=== PATIENT | female | born 1995 | race Caucasian/White ===

== ENCOUNTER 2016-10-06 11:10 | Emergency (ER) | payer OTHER ==
[2016-10-06 11:56] VITALS: BMI 27.3
[2016-10-06 12:00] VITALS: RESP 18
--- NOTE | 2016-10-06 12:15 | ED PDOC ---
HPI: Abdomen Time Seen by Provider: 10/06/16 11:24 Chief Complaint (Nursing): Abdominal Pain Chief Complaint (Provider): Abdominal Pain History Per: Patient History/Exam Limitations: no limitations Onset/Duration Of Symptoms: Days (x6 days) Outside of [place] travel?: No Current Symptoms Are (Timing): Still Present Severity: Moderate Location Of Pain/Discomfort: Other (right-sided flank) Associated Symptoms: Chest Pain, Other (shortness of breath). denies: Fever, Nausea, Vomiting, Diarrhea Exacerbating Factors: Movement, Deep Breaths Additional Complaint(s): Franky Ferguson is a 21 year old female, with a past medical history of asthma, who presents to the emergency department for the evaluation of right-sided flank pain, that the patient has been experiencing for 6 days. Pain is centralized in her abdomen and reportedly radiates to her right shoulder. Exacerbating factors include breathing and ambulation. Associated dry cough and nasal congestion are also currently present. Denies a fever, nausea, vomiting, diarrhea, or shortness of breath. PMD: none specified Against Medical Advice - AMA Patient Left Against Medical Advice: The patient declines admission to the hospital and wishes to leave the Emergency Department. This action is against my medical advice. This decision was made with informed refusal. The patient was told that admission to the hospital is necessary. Explanation of the reasons why were discussed. The risks of leaving were explained to the patient and include, but are not limited to, worsening of known or currently unknown conditions, permanent disability and from undiagnosed or untreated conditions. The patient has the capacity to make this informed decision and understands my explanation of the current medical problem and risks of leaving. The patient voluntarily accepts these risks and signed an AMA form documenting our conversation. The patient was given the opportunity to ask questions and reconsider. The patient was encouraged to return to the Emergency Department at any time for further care. Past Medical History Reviewed: Historical Data, Nursing Documentation, Vital Signs Vital Signs: Last Vital Signs Temp 98.8 F 10/06/16 14:06 Pulse 82 10/06/16 14:06 Resp 18 10/06/16 14:06 BP 128/76 10/06/16 14:06 Pulse Ox 99 10/06/16 14:06 - Medical History PMH: Asthma - Surgical History Other surgeries: Dilation and Curettage (x1 month ago) - Family History Family History: States: Unknown Family Hx - Immunization History Hx Tetanus Toxoid Vaccination: No Hx Influenza Vaccination: No Hx Pneumococcal Vaccination: No - Home Medications Home Medications: Ambulatory Orders Medication Instructions Recorded No Known Home Med [No Known Home 12/16/14 Med] - Allergies Allergies/Adverse Reactions: Allergies Allergy/AdvReac Type Severity Reaction Status Date / Time amoxicillin Allergy RASH Verified 10/06/16 11:56 Penicillins Allergy RASH Verified 10/06/16 11:56 Review of Systems ROS Statement: Except As Marked, All Systems Reviewed And Found Negative Constitutional: Negative for: Fever ENT: Positive for: Nose Congestion Cardiovascular: Negative for: Chest Pain Respiratory: Positive for: Cough. Negative for: Shortness of Breath, Sputum Gastrointestinal: Positive for: Abdominal Pain (right-sided flank). Negative for: Nausea, Vomiting, Diarrhea Musculoskeletal: Positive for: Shoulder Pain (right shoulder) Physical Exam - Reviewed Nursing Documentation Reviewed: Yes Vital Signs Reviewed: Yes - Physical Exam Appears: Positive for: Non-toxic, No Acute Distress. Negative for: Uncomfortable Head Exam: Positive for: ATRAUMATIC, NORMOCEPHALIC Skin: Positive for: Normal Color, Warm, Dry. Negative for: Rash Neck: Positive for: Normal, Painless ROM Cardiovascular/Chest: Positive for: Regular Rate, Rhythm. Negative for: Edema, Murmur Respiratory: Positive for: Normal Breath Sounds. Negative for: Respiratory Distress Gastrointestinal/Abdominal: Positive for: Normal Exam, Soft, Other (right-sided flank pain). Negative for: Tenderness Extremity: Positive for: Normal ROM. Negative for: Tenderness, Swelling Neurologic/Psych: Positive for: Alert, Oriented - Laboratory Results Result Diagrams: 10/06/16 12:05 10/06/16 12:50 - ECG ECG: Positive for: Interpreted By Me, Viewed By Me, Discussed With Supervisor Home Energy Consultant ECG Rhythm: Positive for: Normal QRS, Normal ST Segment, 1st Degree Heart Block Rate: 78 O2 Sat by Pulse Oximetry: 100 (RA) Pulse Ox Interpretation: Normal - Radiology X-Ray: Viewed By Me, Read By Radiologist X-Ray Interpretation: No Acute Disease Medical Decision Making Medical Decision Makin:24 Initial Impression: Flank pain Differential Diagnoses include, but are not limited to renal stones, musculoskeletal pain, pulmonary embolism, pleural effusion, and pneumonia. Initial Plan: * EKG * CBC * BMP * Troponin I * D Dimer * Urine Dip * Urine * Toradol 30 mg IVP * Reevaluation 12:46 EKG read, rate at 78. Normal QRS, Normal ST Segment, 1st Degree Heart Block. 13:32 D Dimer came back elevated at .58. CT angio ordered Scribe Attestation: Documented by Gamaliel Vaca, acting as a scribe for Buddy Wagoner MD. Provider Scribe Attestation: All medical record entries made by the Scribe were at my direction and personally dictated by me. I have reviewed the chart and agree that the record accurately reflects my personal performance of the history, physical exam, medical decision making, and the department course for this patient. I have also personally directed, reviewed, and agree with the discharge instructions and disposition. Disposition - Clinical Impression Clinical Impression: Chest pain, Flank pain - Patient ED Disposition Is Patient to be Admitted: No Counseled Patient/Family Regarding: Studies Performed, Diagnosis, Need For Followup - Disposition Referrals: [facility] [Outside] Disposition: Against Medical Advice Disposition Time: 15:00 Condition: GOOD Additional Instructions: Return for worsening. Follow up with your PCP in 2-3 days. Instructions: Chest Pain (ED), Flank Pain (ED)
[2016-10-06 13:07] LABS: BASO % 0.3 % (0.0-2.0); EOS # 0.1 K/uL (0.0-0.7); EOS % 0.9 % (0.0-4.0); HEMATOCRIT 36.4 % (34.0-47.0); LYMPH # 2.1 K/uL (1.0-4.3); LYMPH % 14.4 % (20.0-40.0); MEAN CELL VOLUME 85.8 fl (81.0-99.0); MEAN CORPUSCULAR HGB CONC 33.8 g/dL (33.0-37.0); MEAN PLATELET VOLUME 8.1 fl (7.2-11.7); MONO # 0.9 K/uL (0.0-0.8); MONO % 5.9 % (0.0-10.0); NEUT # 11.7 K/uL (1.8-7.0); NEUT % 78.5 % (50.0-75.0); NRBC % 0.2 % (0.0-0.0); RED CELL DISTRIBUTION WIDTH 13.5 % (11.5-14.5); WHITE BLOOD COUNT 14.9 K/uL (4.8-10.8)
[2016-10-06 13:14] LABS: BLOOD UREA NITROGEN 20 mg/dl (7-17); CARBON DIOXIDE 23 mmol/L (22-30); CHLORIDE 107 mmol/L (98-107); GFR AFRICAN-AMERICAN > 60; GLUCOSE,RANDOM 86 mg/dL (65-105); SODIUM 142 mmol/l (132-148)
[2016-10-06 13:16] LABS: POTASSIUM 5.8 MMOL/L (3.6-5.0)
[2016-10-06 14:06] VITALS: BP 128/76; TEMP 98.8
--- NOTE | 2016-10-06 15:22 | RAD ---
HISTORY: Right-sided chest pain. COMPARISON: No prior. FINDINGS: LUNGS: No active pulmonary disease. PLEURA: No significant pleural effusion identified, no pneumothorax apparent. CARDIOVASCULAR: Normal. OSSEOUS STRUCTURES: No significant abnormalities. VISUALIZED UPPER ABDOMEN: Normal. OTHER FINDINGS: None. IMPRESSION: No active disease.
[2016-10-06 18:13] VITALS: PULSE 78; O2SAT 100
--- NOTE | 2016-10-07 20:58 | CARD ---
APPROVED REPORT EKG Measurement Heart [id number] <Conclusion> Sinus rhythm with 1st degree AV block Otherwise normal ECG
== END 2016-10-06 15:15 | disposition left against medical advice (07) ==
LOC: H.ER 11:10
DX: R10.9 Unspecified abdominal pain (principal); R07.9 Chest pain, unspecified; I44.0 Atrioventricular block, first degree; Z88.0 Allergy status to penicillin; J45.909 Unspecified asthma, uncomplicated

== ENCOUNTER 2016-10-12 17:15 | Emergency (ER) | payer OTHER ==
[2016-10-12 17:15] VITALS: BMI 31.5
--- NOTE | 2016-10-12 18:43 | ED PDOC ---
HPI: Abdomen Time Seen by Provider: 10/12/16 18:18 Chief Complaint (Nursing): Abdominal Pain Chief Complaint (Provider): Abdominal Pain History Per: Patient History/Exam Limitations: no limitations Onset/Duration Of Symptoms: Hrs (just prior to arrival), Sudden Onset Outside of [place] travel?: No Current Symptoms Are (Timing): Still Present Severity: Moderate Location Of Pain/Discomfort: Other (midline) Quality Of Discomfort: Sharp Associated Symptoms: Other (some localized swelling at area of pain) Additional Complaint(s): Brandt Ferguson is a 21 year old female, s/p recent cholecystectomy (discharged home from this facility approximately 6 hours prior to arrival, who presents to the ED on 10/12/16 for the evaluation of moderate, midline abdominal pain that she began to experience after she had felt a "pop" within the affected area as she was yelling at someone just prior to arrival. Pain is further described as both sudden onset and sharp, not felt prior to or in the days following the surgery. Some associated swelling, localized to the area of pain, is also reported though she denies any genitourinary complaints. PMD: [place] Past Medical History Reviewed: Historical Data, Nursing Documentation, Vital Signs Vital Signs: Last Vital Signs Temp 98.3 F 10/12/16 22:02 Pulse 78 10/12/16 22:02 Resp 17 10/12/16 22:02 BP 135/79 10/12/16 22:02 Pulse Ox 98 10/12/16 22:02 - Medical History PMH: Asthma, Gall Bladder Disease - Surgical History Surgical History: Cholecystectomy - Family History Family History: States: No Known Family Hx - Social History Current smoker - smoking cessation education provided: No Alcohol: None Drugs: Denies - Immunization History Hx Tetanus Toxoid Vaccination: No Hx Influenza Vaccination: No Hx Pneumococcal Vaccination: No - Home Medications Home Medications: Ambulatory Orders Medication Instructions Recorded Ciprofloxacin HCl [Cipro] 500 mg PO BID #10 tablet 10/12/16 Ibuprofen [Motrin Tab] 400 mg PO Q6 PRN #0 tab 10/12/16 Metronidazole [Flagyl] 500 mg PO TID #15 tablet 10/12/16 oxyCODONE/Acetaminophen [Percocet 1 tab PO QID PRN 3 Days 10/12/16 5/325 mg Tab] - Allergies Allergies/Adverse Reactions: Allergies Allergy/AdvReac Type Severity Reaction Status Date / Time amoxicillin Allergy RASH Verified 10/12/16 17:28 Penicillins Allergy RASH Verified 10/12/16 17:28 Review of Systems ROS Statement: Except As Marked, All Systems Reviewed And Found Negative Gastrointestinal: Positive for: Abdominal Pain (sudden onset, sharp/midline; some associated localized swelling also reported) Genitourinary Female: Negative for: Dysuria, Frequency, Hematuria, Vaginal Discharge, Vaginal Bleeding Physical Exam - Reviewed Nursing Documentation Reviewed: Yes Vital Signs Reviewed: Yes - Physical Exam Appears: Positive for: Uncomfortable, In Acute Distress (moderate painful distress) Head Exam: Positive for: ATRAUMATIC, NORMOCEPHALIC Skin: Positive for: Normal Color, Warm, Dry Eye Exam: Positive for: Normal appearance, PERRL ENT: Positive for: Normal ENT Inspection Cardiovascular/Chest: Positive for: Regular Rate, Rhythm. Negative for: Murmur Respiratory: Positive for: Normal Breath Sounds. Negative for: Respiratory Distress Gastrointestinal/Abdominal: Positive for: Soft, Tenderness (just above umbilicus w/subtle swelling at site), Other (incisions are clean/dry/intact). Negative for: Mass, Guarding, Rebound Back: Positive for: Normal Inspection Extremity: Positive for: Normal ROM (moving all extremities) Neurologic/Psych: Positive for: Alert, Oriented - Laboratory Results Result Diagrams: 10/12/16 18:46 10/12/16 18:46 - ECG O2 Sat by Pulse Oximetry: 100 (RA) Pulse Ox Interpretation: Normal Medical Decision Making Medical Decision Makin:18 Initial Impression: post-cholecystectomy abdominal pain Differential diagnoses include but are not limited to hernia, adhesion, internal bleeding, abdominal abscess. Initial Plan: * CT A/P w/IV contrast only * Labs * Lipase * PTT * PT * Udip * Morphine 4mg IVP * Reevaluation Accession No. : [id number] Patient Name / ID : TABITHA CARLTNO / [id number] Exam Date : 10/12/2016 21:17:28 ( Approved ) Study Comment : Sex / Age : F / 21Y Creator : Lucia Kent MD Dictator : Cleat Maker : Manager Supply Chain Planning : Lucia Ketn MD Approver2 : Report Date : 10/12/2016 22:05:00 My Comment : [facility] Division of Radiology [address] [address] Tel. no. Patient Name: BRANDT FERGUSON Pt. Address: [address] [place] [address]. Rec #: [id number] [place] [address]: Roney SWANSON, Sigrid Quezada Pt CELL Order Location: [place] : 1995 Female Age: 21 Order #: [id number] Reason for exam: ABD PAIN CT Scan ABD PELVIS IV CONTRAST ONLY Exam Date: 10/12/16 This imaging exam was performed at [facility] EXAM: CT Abdomen and Pelvis With Intravenous Contrast CLINICAL HISTORY: 21 years old, female; Pain; Abdominal pain; Localized; Other: Mid abd; Prior surgery; Surgery date: Post-operative (0-2 days); Surgery type: Patient states : Gb removed; Additional info: Abd pain. Sent phy. Doc. With request TECHNIQUE: Axial computed tomography images of the abdomen and pelvis with intravenous contrast. This CT exam was performed using one or more of the following dose reduction techniques: automated exposure control, adjustment of the mA and/or kV according to patient size, and/or use of iterative reconstruction technique. Coronal and sagittal reformatted images were created and reviewed. CONTRAST: 90 mL of [id number] administered intravenously. COMPARISON: US - ABDOMEN LIMITED (GB INCLUDED) 10/08/2016 8:51:12 AM FINDINGS: Atelectasis at the lung bases. Status post cholecystectomy. Mild intrahepatic biliary ductal dilatation. Small amount of fluid in the gallbladder fossa. Small amount of free fluid in the pelvis. The spleen, pancreas and adrenal glands demonstrate no acute abnormalities. The kidneys are symmetric with no evidence of hydronephrosis. The aorta is unremarkable. Evaluation of bowel limited without enteric contrast. The small and large bowel as visualized demonstrate no evidence of obstruction or clear focus of inflammation. Retained fecal material in the colon. Small bowel feces sign in the distal small bowel consistent with delayed transit. Few small foci of air and stranding in the anterior subcutaneous tissue and region of umbilicus. IMPRESSION: Atelectasis at the lung bases. Status post cholecystectomy. Mild intrahepatic biliary ductal dilatation. Small amount of fluid in the gallbladder fossa. Small amount of free fluid in the pelvis. Retained fecal material in the colon. Small bowel feces sign in the distal small bowel consistent with delayed transit. Few small foci of air and stranding in the anterior subcutaneous tissue and region of umbilicus. Dictated By: Lucia Kent MD Dictated Date/Time: 10/12/162204 Signed By: Lucia Kent Date Signed: 2204 Transcribed By: DAVID Transcribe Date/Time : 10/12/162204 HAKAN/HERMAN 10p Pt ambulating in ER without difficulty, comfortably talking to friends in the ER. JUR[facility] who recommends Percocet and dc home. Scribe Attestation: Documented by Claudia Ridley, acting as a scribe for Sigrid Sim MD. Provider Scribe Attestation: All medical record entries made by the Scribe were at my direction and personally dictated by me. I have reviewed the chart and agree that the record accurately reflects my personal performance of the history, physical exam, medical decision making, and the department course for this patient. I have also personally directed, reviewed, and agree with the discharge instructions and disposition. Disposition - Clinical Impression Clinical Impression: Abdominal pain - Disposition Referrals: Ap Lerner MD [Staff Provider] - Disposition: Routine/Home Disposition Time: 10:00 Condition: IMPROVED Additional Instructions: FOLLOW UP WITH SURGERY SCHEDULED TAKE ALL YOUR MEDICATIONS PRESCRIBED AVOID ANY USE OF ABDOMINAL MUSCLES. IF YOU MUST COUGH, HOLD A THICK PILLOW TIGHT TO YOUR BELLY Prescriptions: oxyCODONE/Acetaminophen [Percocet 5/325 mg Tab] 1 tab PO QID PRN 3 Days PRN Reason: Pain Instructions: Pain Management After Surgery (GEN)
[2016-10-12 18:54] LABS: BASO # 0.1 K/uL (0.0-0.2); BASO % 0.4 % (0.0-2.0); EOS % 0.2 % (0.0-4.0); HEMATOCRIT 37.9 % (34.0-47.0); LYMPH % 18.6 % (20.0-40.0); MEAN CELL VOLUME 85.2 fl (81.0-99.0); MEAN CORPUSCULAR HEMOGLOBIN 28.4 pg (27.0-31.0); MEAN CORPUSCULAR HGB CONC 33.3 g/dL (33.0-37.0); MEAN PLATELET VOLUME 7.4 fl (7.2-11.7); MONO # 1.1 K/uL (0.0-0.8); MONO % 7.1 % (0.0-10.0); NEUT # 11.9 K/uL (1.8-7.0); NEUT % 73.7 % (50.0-75.0); RED CELL DISTRIBUTION WIDTH 12.8 % (11.5-14.5); WHITE BLOOD COUNT 16.2 K/uL (4.8-10.8)
[2016-10-12 19:18] LABS: ALKALINE PHOSPHATASE 69 U/L (38-126); ALT/SGPT 39 U/L (9-52); AST/SGOT 42 U/L (14-36); BILIRUBIN,TOTAL 0.3 mg/dl (0.2-1.3); BLOOD UREA NITROGEN 13 mg/dl (7-17); CALCIUM 9.1 mg/dL (8.4-10.2); CARBON DIOXIDE 27 mmol/L (22-30); CHLORIDE 104 mmol/L (98-107); GFR AFRICAN-AMERICAN > 60; GLUCOSE,RANDOM 95 mg/dL (65-105); LIPASE 159 U/L (23-300); POTASSIUM 3.8 MMOL/L (3.6-5.0); SODIUM 143 mmol/l (132-148); TOTAL PROTEIN 7.5 G/DL (6.3-8.2)
[2016-10-12 19:26] LABS: PARTIAL THROMBOPLASTIN TIME 28.2 SECONDS (23.3-32.5)
[2016-10-12] MEDS ORDERED: Iohexol 300 100 ML IJ ONE (21:02)
[2016-10-12] MEDS ORDERED: Sodium Chloride 0.9% 50 ML IV ONE (21:02)
[2016-10-12 22:03] VITALS: BP 135/79; PULSE 78; RESP 17; TEMP 98.3
--- NOTE | 2016-10-12 22:06 | CT ---
EXAM: CT Abdomen and Pelvis With Intravenous Contrast CLINICAL HISTORY: 21 years old, female; Pain; Abdominal pain; Localized; Other: Mid abd; Prior surgery; Surgery date: Post-operative (0-2 days); Surgery type: Patient states: Gb removed; Additional info: Abd pain. Sent phy. Doc. With request TECHNIQUE: Axial computed tomography images of the abdomen and pelvis with intravenous contrast. This CT exam was performed using one or more of the following dose reduction techniques: automated exposure control, adjustment of the mA and/or kV according to patient size, and/or use of iterative reconstruction technique. Coronal and sagittal reformatted images were created and reviewed. CONTRAST: 90 mL of [id number] administered intravenously. COMPARISON: US - ABDOMEN LIMITED (GB INCLUDED) 10/08/2016 8:51:12 AM FINDINGS: Atelectasis at the lung bases. Status post cholecystectomy. Mild intrahepatic biliary ductal dilatation. Small amount of fluid in the gallbladder fossa. Small amount of free fluid in the pelvis. The spleen, pancreas and adrenal glands demonstrate no acute abnormalities. The kidneys are symmetric with no evidence of hydronephrosis. The aorta is unremarkable. Evaluation of bowel limited without enteric contrast. The small and large bowel as visualized demonstrate no evidence of obstruction or clear focus of inflammation. Retained fecal material in the colon. Small bowel feces sign in the distal small bowel consistent with delayed transit. Few small foci of air and stranding in the anterior subcutaneous tissue and region of umbilicus. IMPRESSION: Atelectasis at the lung bases. Status post cholecystectomy. Mild intrahepatic biliary ductal dilatation. Small amount of fluid in the gallbladder fossa. Small amount of free fluid in the pelvis. Retained fecal material in the colon. Small bowel feces sign in the distal small bowel consistent with delayed transit. Few small foci of air and stranding in the anterior subcutaneous tissue and region of umbilicus.
[2016-10-12 23:04] VITALS: O2SAT 100
== END 2016-10-12 23:11 | disposition home or self-care (01) ==
LOC: H.ER 17:15
DX: R10.9 Unspecified abdominal pain (principal)

== ENCOUNTER 2017-06-05 16:53 | Emergency (ER) | payer OTHER ==
[2017-06-05 16:54] VITALS: BMI 31.5
[2017-06-05 17:12] VITALS: RESP 16
[2017-06-05 18:32] LABS: CALCIUM 9.1 mg/dL (8.4-10.2); CARBON DIOXIDE 26 mmol/L (22-30); CHLORIDE 108 mmol/L (98-107); GFR AFRICAN-AMERICAN > 60; LIPASE 74 U/L (23-300); SODIUM 142 mmol/l (132-148)
--- NOTE | 2017-06-05 18:36 | ED PDOC ---
HPI: Abdomen Time Seen by Provider: 06/05/17 17:51 Chief Complaint (Nursing): Abdominal Pain Chief Complaint (Provider): Abdominal pain History Per: Patient Outside of [place] travel?: No Location Of Pain/Discomfort: RUQ Quality Of Discomfort: "Pain" Additional Complaint(s): 21yo female, presents to ED with complaints of "boils" to her left face and also bumps infront of her left ear, present for the last 4 days. She reports associated swelling and pain to the area. She also has cough and congestion, throat pain, denies any fever. Patient has a secondary complaint of chronic right upper quadrant abdominal pain, present since October of this year. Patient states she had a laproscopic cholecystectomy in this facility in September and since October, she has had pain in her right upper quadrant. Patient states she has not follows up with either her PCP or her surgeon for evaluation of the pain. Patient denies any fever, vomiting or diarrhea. No other complaints. Past Medical History Reviewed: Historical Data, Nursing Documentation, Vital Signs Vital Signs: Last Vital Signs Temp 98.3 F 06/05/17 22:18 Pulse 72 06/05/17 22:18 Resp 16 06/05/17 22:18 BP 127/86 06/05/17 22:18 Pulse Ox 98 06/05/17 22:18 - Medical History PMH: Asthma, Gall Bladder Disease - Surgical History Surgical History: Cholecystectomy - Family History Family History: States: No Known Family Hx, Unknown Family Hx - Social History Current smoker - smoking cessation education provided: No Ex-Smoker (has not smoked in the last 12 months): No Alcohol: None Drugs: Denies - Immunization History Hx Tetanus Toxoid Vaccination: No Hx Influenza Vaccination: No Hx Pneumococcal Vaccination: No - Home Medications Home Medications: Ambulatory Orders Medication Instructions Recorded Ciprofloxacin HCl [Cipro] 500 mg PO BID #10 tablet 10/12/16 Ibuprofen [Motrin Tab] 400 mg PO Q6 PRN #0 tab 10/12/16 Metronidazole [Flagyl] 500 mg PO TID #15 tablet 10/12/16 oxyCODONE/Acetaminophen [Percocet 1 tab PO QID PRN 3 Days tab 10/12/16 5/325 mg Tab] Doxycycline Hyclate 100 mg PO BID #14 cap 06/05/17 - Allergies Allergies/Adverse Reactions: Allergies Allergy/AdvReac Type Severity Reaction Status Date / Time amoxicillin Allergy RASH Verified 06/05/17 17:07 Penicillins Allergy RASH Verified 06/05/17 17:07 Review of Systems ROS Statement: Except As Marked, All Systems Reviewed And Found Negative Constitutional: Negative for: Fever, Chills ENT: Positive for: Nose Congestion, Other (bumps noted infront of left ear) Respiratory: Positive for: Cough Skin: Positive for: Other (boils noted to left side of face) Physical Exam - Reviewed Nursing Documentation Reviewed: Yes Vital Signs Reviewed: Yes - Physical Exam Appears: Positive for: Non-toxic, No Acute Distress Head Exam: Positive for: ATRAUMATIC, NORMAL INSPECTION, NORMOCEPHALIC Skin: Positive for: Warm Eye Exam: Positive for: EOMI, PERRL ENT: Positive for: Normal ENT Inspection Neck: Positive for: Supple Cardiovascular/Chest: Positive for: Regular Rate, Rhythm Respiratory: Positive for: Normal Breath Sounds. Negative for: Respiratory Distress Lymphatic: Positive for: Adenopathy (lymphadenopathy noted to left anteroauricular area; left submandibular adenopathy also noted.) Neurologic/Psych: Positive for: Alert, Oriented Comments: Skin: furuncles on left temporal area, no fluctuance, discharge or surrounding redness noted. - Laboratory Results Result Diagrams: 06/05/17 18:13 06/05/17 18:13 - ECG O2 Sat by Pulse Oximetry: 100 (RA) Pulse Ox Interpretation: Normal Medical Decision Making Medical Decision Making: Impression: Lymphadenopahty with facial furuncle. Abdominal pain s/p surgical procedure. Plan: -- Labs -- KUB Abdomen Reassess Time: 1820 XR Abdomen FINDINGS: BOWEL: Nonobstructive bowel gas pattern. Mild constipation. Right upper quadrant surgical clips. BONES: No acute osseous abnormality is detected. OTHER FINDINGS: Pelvic calcifications, likely phleboliths. IMPRESSION: Right upper quadrant surgical clips. Mild constipation. Time: 1921 Patient with continued complaints of throat pain. Also due to cervical lymphadenopathy, will order CT Neck. Patient to be signed out to Dr. Carroll pending CT Neck. Scribe Attestation: Documented by Alainajeffery Tuttle acting as a scribe for Buddy Wagoner MD Provider Attestation: All medical record entries made by the Scribe were at my direction and personally dictated by me. I have reviewed the chart and agree that the record accurately reflects my personal performance of the history, physical exam, medical decision making, and the department course for this patient. I have also personally directed, reviewed, and agree with the discharge instructions and disposition. Disposition - Clinical Impression Clinical Impression: Abdominal pain in female, Leukocytosis - Patient ED Disposition Is Patient to be Admitted: Transfer of Care - Disposition Referrals: [facility] [Outside] Eusebio Gómez MD [Staff Provider] - Disposition: Transfer of Care Disposition Time: 19:07 Condition: GOOD Additional Instructions: Follow up with your PCP in 2-3 days. Prescriptions: Doxycycline Hyclate 100 mg PO BID #14 cap Instructions: Folliculitis (ED), Abdominal Pain (ED) Patient Signed Over To: Chuy Carroll Handoff Comments: pending CT Neck
[2017-06-05 18:37] LABS: ALB/GLOB RATIO 1.1 (1.0-2.1); ALKALINE PHOSPHATASE 69 U/L (38-126); ALT/SGPT 34 U/L (9-52); AST/SGOT 47 U/L (14-36); BASO # 0.1 K/uL (0.0-0.2); BILIRUBIN,TOTAL 1.4 mg/dl (0.2-1.3); BLOOD UREA NITROGEN 15 mg/dl (7-17); EOS # 0.2 K/uL (0.0-0.7); EOS % 0.9 % (0.0-4.0); GLUCOSE,RANDOM 82 mg/dL (65-105); POTASSIUM 5.9 MMOL/L (3.6-5.0); RED CELL DISTRIBUTION WIDTH 12.8 % (11.5-14.5); TOTAL PROTEIN 8.9 G/DL (6.3-8.2)
--- NOTE | 2017-06-05 18:40 | RAD ---
HISTORY: chronic abd pain COMPARISON: CT of the abdomen and pelvis with contrast performed 10/12/16 FINDINGS: BOWEL: Nonobstructive bowel gas pattern. Mild constipation. Right upper quadrant surgical clips. BONES: No acute osseous abnormality is detected. OTHER FINDINGS: Pelvic calcifications, likely phleboliths. IMPRESSION: Right upper quadrant surgical clips. Mild constipation.
[2017-06-05 18:59] LABS: BASO % 0.5 % (0.0-2.0); HEMATOCRIT 41.1 % (34.0-47.0); LYMPH # 3.8 K/uL (1.0-4.3); LYMPH % 21.3 % (20.0-40.0); MEAN CELL VOLUME 86.7 fl (81.0-99.0); MEAN CORPUSCULAR HEMOGLOBIN 28.1 pg (27.0-31.0); MEAN CORPUSCULAR HGB CONC 32.4 g/dL (33.0-37.0); MEAN PLATELET VOLUME 8.9 fl (7.2-11.7); MONO # 0.8 K/uL (0.0-0.8); MONO % 4.3 % (0.0-10.0); NRBC % 0.1 % (0.0-0.0); WHITE BLOOD COUNT 17.8 K/uL (4.8-10.8)
--- NOTE | 2017-06-05 19:15 | ED PDOC ---
- Laboratory Results Result Diagrams: 06/05/17 18:13 06/05/17 18:13 - ECG O2 Sat by Pulse Oximetry: 100 (RA) Pulse Ox Interpretation: Normal Medical Decision Making Medical Decision Making: Receiving sign out: Patient signed out to me by Dr. Wagoner at 1900 pending CBC. Scribe Attestation: Documented by Alaina Tuttle acting as a scribe for Chuy Carroll MD. Provider Attestation: All medical record entries made by the Scribe were at my direction and personally dictated by me. I have reviewed the chart and agree that the record accurately reflects my personal performance of the history, physical exam, medical decision making, and the department course for this patient. I have also personally directed, reviewed, and agree with the discharge instructions and disposition. Disposition - Disposition Condition: STABLE Forms: [employer] (Malay)
--- NOTE | 2017-06-05 19:27 | ED PDOC ---
- Laboratory Results Result Diagrams: 06/05/17 18:13 06/05/17 18:13 - ECG O2 Sat by Pulse Oximetry: 100 Medical Decision Making Medical Decision Making: Receiving sign out: Patient signed out to me by Dr. Wagoner at [address] Abdomen Pt. reevaluted at bedside, states her throat was hurting minimally but was more concerned about her stomach. Throat clear of injection and exudate. Abdomen slightly tender in RUQ. CT showed no acute pathology. Pt. informed of blood results, states she has a hx of leukocytosis and it's been as high as 19. Explained that she needs to followup w/ PMD, and patient states "I don't go to her anymore because she's retarded." Explained the importance of primary care f /u w/ patient who verbalized understanding. Gave patient to referral to Clinic and also Hem/Onc for eval for chronic leukocytosis. Pt. stable for discharge. Return precautions discussed. Scribe Attestation: Documented by Alaina Tuttle acting as a scribe for Chuy Carroll MD. Provider Attestation: All medical record entries made by the Scribe were at my direction and personally dictated by me. I have reviewed the chart and agree that the record accurately reflects my personal performance of the history, physical exam, medical decision making, and the department course for this patient. I have also personally directed, reviewed, and agree with the discharge instructions and disposition. Disposition - Clinical Impression Clinical Impression: Abdominal pain in female, Leukocytosis - POA Present On Arrival: None - Disposition Referrals: [facility] [Outside] Eusebio Gómez MD [Staff Provider] - Disposition: Routine/Home Disposition Time: 21:56 Condition: GOOD Additional Instructions: Follow up with your PCP in 2-3 days. Prescriptions: Doxycycline Hyclate 100 mg PO BID #14 cap Instructions: Folliculitis (ED), Abdominal Pain (ED) Progress Note - Review of Symptoms Events since last encounter: Time: 2146 Patient negative for flu A/B. Stable for discharge home.
[2017-06-05] MEDS ORDERED: Iohexol 300 100 ML IJ ONE (19:32)
--- NOTE | 2017-06-05 21:11 | CT ---
EXAM: CT Abdomen and Pelvis With Intravenous Contrast CLINICAL HISTORY: 21 years old, female; Pain; Abdominal pain; Localized; Right; Prior surgery; Surgery date: 6+ months; Surgery type: Lap matthieu about 6 months ago; Additional info: R sided abd pain, S/P matthieu 4 mo ago TECHNIQUE: Axial computed tomography images of the abdomen and pelvis with intravenous contrast. All CT scans at this facility use one or more dose reduction techniques, viz.: automated exposure control; ma/kV adjustment per patient size (including targeted exams where dose is matched to indication; i.e. head); or iterative reconstruction technique. Coronal and sagittal reformatted images were created and reviewed. CONTRAST: 90 mL of [id number] administered intravenously. COMPARISON: CT - ABD PELVIS IV CONTRAST ONLY 2016-10-12 21:17 FINDINGS: Lower thorax: No acute findings. ABDOMEN: Liver: Unremarkable. No mass. Gallbladder and bile ducts: Cholecystectomy. No ductal dilation. Pancreas: No ductal dilation. No mass. Spleen: No splenomegaly. Adrenals: No mass. Kidneys and ureters: No mass. No hydronephrosis. Stomach and bowel: No definite mural thickening. No obstruction. Appendix: Normal caliber. No definite inflammation. PELVIS: Bladder: Unremarkable. Reproductive: Unremarkable as visualized. ABDOMEN and PELVIS: Intraperitoneal space: Trace free fluid within pelvis. No free air. Bones/joints: No acute fracture. Soft tissues: Unremarkable. Vasculature: Unremarkable. No aneurysm. Lymph nodes: No pathologically enlarged lymph nodes. IMPRESSION: 1. No definite acute intraabdominal abnormality. 2. Incidental/non-acute findings are described above.
[2017-06-05 22:19] VITALS: BP 127/86; PULSE 72; TEMP 98.3
[2017-06-06 13:14] VITALS: O2SAT 100
== END 2017-06-05 22:19 | disposition home or self-care (01) ==
LOC: H.ER 16:53
DX: R10.11 Right upper quadrant pain (principal); D72.829 Elevated white blood cell count, unspecified; R59.9 Enlarged lymph nodes, unspecified; K59.00 Constipation, unspecified; Z88.0 Allergy status to penicillin
CPT/HCPCS: 74000; 74177; 80053; 81025; 83605; 83690; 85025; 87804; 99284; Q9967

== ENCOUNTER 2017-09-15 06:24 | Emergency (ER) | payer OTHER ==
[2017-09-15 06:24] VITALS: BMI 31.5
[2017-09-15 06:36] VITALS: O2SAT 98
--- NOTE | 2017-09-15 08:09 | ED PDOC ---
- ECG O2 Sat by Pulse Oximetry: 98 Pulse Ox Interpretation: Normal Disposition - Disposition
--- NOTE | 2017-09-15 08:25 | ED PDOC ---
HPI: General Adult Time Seen by Provider: 09/15/17 07:14 Chief Complaint (Nursing): Anxiety Chief Complaint (Provider): Cough History Per: Patient History/Exam Limitations: no limitations Onset/Duration Of Symptoms: Other (x 1 week) Current Symptoms Are (Timing): Still Present Additional Complaint(s): Ms. Wilkins is a 21 year old female who presents to the ED complaining of coughing, anxiety, congestion, and runny nose for 1 week. Patient reports throat is itchy and "pain where the lungs are." Denies nausea, vomiting, diarrhea, leg pain, abdominal pain. Patient reports she is allergic to penicillin and amoxicillin. Patient denies taking any medications at home. No chest pain. No weakness or headaches. PMD: Kristian Watkins Past Medical History Reviewed: Historical Data, Nursing Documentation, Vital Signs Vital Signs: Last Vital Signs Temp 99.3 F 09/15/17 06:33 Pulse 86 09/15/17 06:33 Resp 18 09/15/17 06:33 BP 130/87 09/15/17 06:33 Pulse Ox 98 09/15/17 10:27 - Medical History PMH: Denies: Diabetes, Hepatitis, HIV, HTN, Seizures, Sexually Transmitted Disease - Surgical History Surgical History: Cholecystectomy - Family History Family History: States: Unknown Family Hx - Social History Current smoker - smoking cessation education provided: No Alcohol: None Drugs: Denies - Immunization History Hx Tetanus Toxoid Vaccination: No Hx Influenza Vaccination: No Hx Pneumococcal Vaccination: No - Home Medications Home Medications: Ambulatory Orders Medication Instructions Recorded Ciprofloxacin HCl [Cipro] 500 mg PO BID #10 tablet 10/12/16 Ibuprofen [Motrin Tab] 400 mg PO Q6 PRN #0 tab 10/12/16 Metronidazole [Flagyl] 500 mg PO TID #15 tablet 10/12/16 oxyCODONE/Acetaminophen [Percocet 1 tab PO QID PRN 3 Days tab 10/12/16 5/325 mg Tab] Doxycycline Hyclate 100 mg PO BID #14 cap 06/05/17 Benzonatate [Tessalon Perles] 100 mg PO BID PRN 5 Days sgl 09/15/17 Ibuprofen [Motrin] 600 mg PO TID 7 Days tab 09/15/17 Oseltamivir Phosphate [Tamiflu] 75 mg PO BID 5 Days capsule 09/15/17 - Allergies Allergies/Adverse Reactions: Allergies Allergy/AdvReac Type Severity Reaction Status Date / Time amoxicillin Allergy RASH Verified 09/15/17 06:33 Penicillins Allergy RASH Verified 09/15/17 06:33 Review of Systems ROS Statement: Except As Marked, All Systems Reviewed And Found Negative ENT: Positive for: Nose Congestion, Other (Runny nose, itchy throat) Respiratory: Positive for: Cough Gastrointestinal: Negative for: Nausea, Vomiting, Abdominal Pain, Diarrhea Musculoskeletal: Negative for: Leg Pain Neurological: Negative for: Headache Psych: Positive for: Anxiety. Negative for: Depression, Suicidal ideation Physical Exam - Reviewed Nursing Documentation Reviewed: Yes Vital Signs Reviewed: Yes - Physical Exam Appears: Positive for: Non-toxic Head Exam: Positive for: ATRAUMATIC, NORMAL INSPECTION, NORMOCEPHALIC Skin: Positive for: Normal Color, Warm, Dry Eye Exam: Positive for: Normal appearance, EOMI, PERRL ENT: Positive for: Nasal Congestion Neck: Positive for: Normal, Painless ROM, Supple Cardiovascular/Chest: Positive for: Regular Rate, Rhythm Respiratory: Negative for: Accessory Muscle Use Gastrointestinal/Abdominal: Positive for: Normal Exam, Soft. Negative for: Tenderness Back: Positive for: Normal Inspection. Negative for: L CVA Tenderness, R CVA Tenderness Extremity: Positive for: Normal ROM. Negative for: Tenderness, Pedal Edema Neurologic/Psych: Positive for: Alert, inbound call center agent II-XII, Oriented (x 3). Negative for : Motor/Sensory Deficits - Laboratory Results Urine POC: Negative - ECG ECG: Positive for: Interpreted By Me, Viewed By Me ECG Rhythm: Positive for: Normal QRS, Normal ST Segment, Sinus Rhythm O2 Sat by Pulse Oximetry: 98 (RA) Pulse Ox Interpretation: Normal - Radiology X-Ray: Interpreted by Me, Viewed By Me X-Ray Interpretation: No Acute Disease - Progress ED Course And Treament: 1106: Stable. AAOx3. Pain free. Tolerated po. Medical Decision Making Medical Decision Making: Time: 08:08 Plan: - EKG - Chest X-Ray - Motrin Tab 600 mg PO STAT - Tessalon Perles 100 mg PO STAT Scribe Attestation: Documented by Daniel Alvarado, acting as a scribe for Andrea Rinaldi MD. Provider Scribe Attestation: All medical record entries made by the Scribe were at my direction and personally dictated by me. I have reviewed the chart and agree that the record accurately reflects my personal performance of the history, physical exam, medical decision making, and the department course for this patient. I have also personally directed, reviewed, and agree with the discharge instructions and disposition. Disposition - Clinical Impression Clinical Impression: Influenza-like illness - Patient ED Disposition Is Patient to be Admitted: No Counseled Patient/Family Regarding: Studies Performed, Diagnosis, Need For Followup, Rx Given - Disposition Referrals: [facility] [Outside] - 09/17/17 Disposition: Routine/Home Disposition Time: 11:07 Condition: STABLE Additional Instructions: Return if not better in 3 days. Prescriptions: Benzonatate [Tessalon Perles] 100 mg PO BID PRN 5 Days sgl PRN Reason: Cough Ibuprofen [Motrin] 600 mg PO TID 7 Days tab Oseltamivir Phosphate [Tamiflu] 75 mg PO BID 5 Days capsule Instructions: Viral Upper Respiratory Infection, Adult (DC)
--- NOTE | 2017-09-15 11:09 | RAD ---
HISTORY: Cough COMPARISON: Comparison chest dated 10/06/2016 TECHNIQUE: Chest PA and lateral FINDINGS: LUNGS: No active pulmonary disease. PLEURA: No significant pleural effusion identified. No pneumothorax apparent. CARDIOVASCULAR: Normal. OSSEOUS STRUCTURES: No significant abnormalities. VISUALIZED UPPER ABDOMEN: Normal. OTHER FINDINGS: None. IMPRESSION: No active disease.
[2017-09-15 11:31] VITALS: BP 108/68; PULSE 82; RESP 19; TEMP 98.7
--- NOTE | 2017-09-16 10:34 | CARD ---
APPROVED REPORT EKG Measurement Heart [id number] <Conclusion> Sinus rhythm with sinus arrhythmia with 1st degree AV block High J point Otherwise normal ECG
== END 2017-09-15 11:44 | disposition home or self-care (01) ==
LOC: H.ER 06:24
DX: J11.1 Influenza due to unidentified influenza virus with other respiratory manifestations (principal); F41.9 Anxiety disorder, unspecified; Z88.0 Allergy status to penicillin

== ENCOUNTER 2017-10-09 17:35 | Emergency (ER) | payer OTHER ==
[2017-10-09 17:35] VITALS: BMI 31.5
[2017-10-09 18:25] VITALS: BP 146/89; PULSE 84; RESP 16; TEMP 98.7; O2SAT 100
[2017-10-09] MEDS ORDERED: Sodium Chloride 0.9% 1,000 ML IV STA (20:12)
--- NOTE | 2017-10-09 20:15 | ED PDOC ---
HPI: Abdomen Time Seen by Provider: 10/09/17 19:54 Chief Complaint (Nursing): Abdominal Pain Chief Complaint (Provider): Abdominal pain History Per: Patient History/Exam Limitations: no limitations Additional Complaint(s): Pt reports R sided abdominal pain X 1 week, associated with nausea and dizziness. Pt is 1 year s/p lap matthieu. Denies fever, vomiting, constipation, diarrhea, symptoms. Past Medical History Vital Signs: Last Vital Signs Temp 98.7 F 10/09/17 18:22 Pulse 84 10/09/17 18:22 Resp 16 10/09/17 18:22 BP 146/89 10/09/17 18:22 Pulse Ox 100 10/09/17 21:07 - Medical History PMH: Asthma, Gall Bladder Disease Denies: Diabetes, Hepatitis, HIV, HTN, Seizures, Sexually Transmitted Disease - Surgical History Surgical History: Cholecystectomy - Family History Family History: States: Unknown Family Hx - Immunization History Hx Tetanus Toxoid Vaccination: No Hx Influenza Vaccination: No Hx Pneumococcal Vaccination: No - Home Medications Home Medications: Ambulatory Orders Medication Instructions Recorded Ciprofloxacin HCl [Cipro] 500 mg PO BID #10 tablet 10/12/16 Ibuprofen [Motrin Tab] 400 mg PO Q6 PRN #0 tab 10/12/16 Metronidazole [Flagyl] 500 mg PO TID #15 tablet 10/12/16 oxyCODONE/Acetaminophen [Percocet 1 tab PO QID PRN 3 Days tab 10/12/16 5/325 mg Tab] Doxycycline Hyclate 100 mg PO BID #14 cap 06/05/17 Benzonatate [Tessalon Perles] 100 mg PO BID PRN 5 Days sgl 09/15/17 Ibuprofen [Motrin] 600 mg PO TID 7 Days tab 09/15/17 Oseltamivir Phosphate [Tamiflu] 75 mg PO BID 5 Days capsule 09/15/17 Ibuprofen [Motrin] 600 mg PO Q6H PRN #20 tab 10/09/17 Ondansetron [Zofran Odt] 4 mg PO Q8H PRN #15 odt 10/09/17 - Allergies Allergies/Adverse Reactions: Allergies Allergy/AdvReac Type Severity Reaction Status Date / Time amoxicillin Allergy RASH Verified 10/09/17 18:22 Penicillins Allergy RASH Verified 10/09/17 18:22 - Laboratory Results Result Diagrams: 10/09/17 20:54 10/09/17 20:54 - ECG O2 Sat by Pulse Oximetry: 100 Medical Decision Making Medical Decision Makin yo female with abdominal pain. - labs - CT abd/pelvis - Morphine - IVF Accession No. : [id number] Patient Name / ID : TABITHA CARLTON / [id number] Exam Date : 10/09/2017 21:33:17 ( Approved ) Study Comment : Sex / Age : F / 22Y Creator : Radha Ayon Dictator : Checkering Machine Operator : Customer Service Cashier : Radha Ayon Approver2 : Report Date : 10/09/2017 23:16:00 My Comment : [facility] of Radiology [address] [place] [address] Tel. no. Patient Name: BRANDT LU Pt. Address: [address] [place] [address] Rec #: [id number] [place] [address]: Radha Servin MD Pt HOME Order Location: [facility] : 1995 Female Age: 22 Order #: [id number] Reason for exam: RUQ/RLQ pain CT Scan ABD PELVIS IV CONTRAST ONLY Exam Date: 10/09/17 This imaging exam was performed at [facility] EXAM: CT Abdomen and Pelvis With Intravenous Contrast EXAM DATE/TIME: 10/09/2017 8:11 PM CLINICAL HISTORY: 22 years old, female; Pain; Abdominal pain; Generalized; Prior surgery; Surgery date: 6+ months; Surgery type: Gb removed; Additional info: Ruq/rlq pain TECHNIQUE: Axial computed tomography images of the abdomen and pelvis with intravenous contrast. All CT scans at this facility use one or more dose reduction techniques, viz.: automated exposure control; ma/kV adjustment per patient size (including targeted exams where dose is matched to indication; i.e. head); or iterative reconstruction technique. Coronal and sagittal reformatted images were created and reviewed. CONTRAST: 90 mL of [id number] administered intravenously. COMPARISON: CT - ABD PELVIS IV CONTRAST ONLY 2017-06-05 20:36 FINDINGS: Cholecystectomy clips are present.There is mild intrahepatic duct dilation likely secondary to cholecystectomy.Recommend correlation with laboratory values. There is nonspecific periportal edema new since prior. The spleen is normal. The pancreas is normal. No hydronephrosis or perinephric stranding. The bowel appears normal. A normal appendix is identified axial images 107 through 112, coronal images 31 through 34. There is a partially collapsed right ovarian cyst measuring 1.8 x 1.2 cm. Left ovarian follicles are noted. The uterus appears normal. IMPRESSION: Partially collapsed right ovarian cyst. Cholecystectomy clips are present. Mild intrahepatic biliary duct dilation and/or nonspecific periportal edema. Normal appendix. Dictated By: Radha Ayon MD Dictated Date/Time: 10/09/172315 Signed By: Radha Ayon MD Date Signed: 2315 Transcribed By: DAVID Transcribe Date/Time : 10/09/172315 [id number] Disposition - Clinical Impression Clinical Impression: Abdominal pain in female - Disposition Referrals: Kristian Watkins MD [Family Provider] - Disposition: Routine/Home Disposition Time: 23:49 Condition: STABLE Prescriptions: Ibuprofen [Motrin] 600 mg PO Q6H PRN #20 tab PRN Reason: Pain, Moderate (4-7) Ondansetron [Zofran Odt] 4 mg PO Q8H PRN #15 odt PRN Reason: Nausea/Vomiting Instructions: Acute Abdomen (Belly Pain), Adult (DC) Forms: Welcome Real-[employer] (Khmer)
[2017-10-09 20:58] LABS: BASO % 0.3 % (0.0-2.0); EOS # 0.1 K/uL (0.0-0.7); EOS % 0.8 % (0.0-4.0); HEMOGLOBIN 12.5 g/dL (12.0-16.0); LYMPH # 3.3 K/uL (1.0-4.3); LYMPH % 29.7 % (20.0-40.0); MEAN CELL VOLUME 87.3 fl (81.0-99.0); MEAN CORPUSCULAR HEMOGLOBIN 28.3 pg (27.0-31.0); MEAN CORPUSCULAR HGB CONC 32.4 g/dL (33.0-37.0); MEAN PLATELET VOLUME 7.8 fl (7.2-11.7); MONO # 0.6 K/uL (0.0-0.8); MONO % 5.5 % (0.0-10.0); NEUT # 7.1 K/uL (1.8-7.0); NEUT % 63.7 % (50.0-75.0); RBC 4.42 Mil/uL (3.80-5.20); RED CELL DISTRIBUTION WIDTH 13.3 % (11.5-14.5); WHITE BLOOD COUNT 11.1 K/uL (4.8-10.8)
[2017-10-09 21:13] LABS: ALB/GLOB RATIO 1.2 (1.0-2.1); ALBUMIN 4.2 g/dL (3.5-5.0); ALT/SGPT 26 U/L (9-52); AST/SGOT 25 U/L (14-36); BLOOD UREA NITROGEN 19 mg/dl (7-17); CALCIUM 9.2 mg/dL (8.4-10.2); GFR AFRICAN-AMERICAN > 60; GFR NON-AFRICAN AMERICAN > 60; LIPASE 124 U/L (23-300)
[2017-10-09 21:18] LABS: INR 1.1 (0.9-1.2); PROTHROMBIN TIME 12.5 Seconds (9.8-13.1)
[2017-10-09] MEDS ORDERED: Iohexol 300 100 ML IJ ONE (21:31)
[2017-10-09] MEDS ORDERED: Sodium Chloride 0.9% 100 ML ONE (21:31)
--- NOTE | 2017-10-09 23:16 | CT ---
EXAM: CT Abdomen and Pelvis With Intravenous Contrast EXAM DATE/TIME: 10/09/2017 8:11 PM CLINICAL HISTORY: 22 years old, female; Pain; Abdominal pain; Generalized; Prior surgery; Surgery date: 6+ months; Surgery type: Gb removed; Additional info: Ruq/rlq pain TECHNIQUE: Axial computed tomography images of the abdomen and pelvis with intravenous contrast. All CT scans at this facility use one or more dose reduction techniques, viz.: automated exposure control; ma/kV adjustment per patient size (including targeted exams where dose is matched to indication; i.e. head); or iterative reconstruction technique. Coronal and sagittal reformatted images were created and reviewed. CONTRAST: 90 mL of [id number] administered intravenously. COMPARISON: CT - ABD PELVIS IV CONTRAST ONLY 2017-06-05 20:36 FINDINGS: Cholecystectomy clips are present.There is mild intrahepatic duct dilation likely secondary to cholecystectomy.Recommend correlation with laboratory values. There is nonspecific periportal edema new since prior. The spleen is normal. The pancreas is normal. No hydronephrosis or perinephric stranding. The bowel appears normal. A normal appendix is identified axial images 107 through 112, coronal images 31 through 34. There is a partially collapsed right ovarian cyst measuring 1.8 x 1.2 cm. Left ovarian follicles are noted. The uterus appears normal. IMPRESSION: Partially collapsed right ovarian cyst. Cholecystectomy clips are present. Mild intrahepatic biliary duct dilation and/or nonspecific periportal edema. Normal appendix.
== END 2017-10-10 00:26 | disposition home or self-care (01) ==
LOC: H.ER 17:35
DX: R10.11 Right upper quadrant pain (principal); Z88.0 Allergy status to penicillin; Z90.49 Acquired absence of other specified parts of digestive tract; N83.201 Unspecified ovarian cyst, right side
CPT/HCPCS: 74177; 80053; 81025; 83690; 85025; 85610; 85730; 96374; 99283; J2270; J7040; Q9967

== ENCOUNTER 2018-04-29 11:35 | Observation (INO) | payer OTHER ==
[2018-04-29 12:40] VITALS: BMI 29.8
[2018-04-29 13:25] LABS: SQUAMOUS EPITHIAL 1 /hpf (0-5); URINE BACTERIA OCC (<OCC); URINE BILIRUBIN NEGATIVE (NEGATIVE); URINE BLOOD NEGATIVE (NEGATIVE); URINE CLARITY CLEAR (Clear); URINE COLOR STRAW (YELLOW); URINE GLUCOSE (UA) NEG (Normal); URINE LEUKOCYTE ESTERASE TRACE Leu/uL (Negative); URINE PROTEIN NEGATIVE (NEGATIVE); URINE UROBILINOGEN 0.2-1.0 mg/dL (0.2-1.0)
[2018-04-29 13:53] LABS: HEMOGLOBIN 9.8 g/dL (12.0-16.0); MEAN CELL VOLUME 84.4 fl (81.0-99.0); MEAN CORPUSCULAR HEMOGLOBIN 27.5 pg (27.0-31.0); MEAN CORPUSCULAR HGB CONC 32.6 g/dL (33.0-37.0); RBC 3.58 Mil/uL (3.80-5.20); RED CELL DISTRIBUTION WIDTH 13.5 % (11.5-14.5); WHITE BLOOD COUNT 8.6 K/uL (4.8-10.8)
[2018-04-29 14:02] LABS: ALBUMIN 3.5 g/dL (3.5-5.0); ALT/SGPT 27 U/L (9-52); AST/SGOT 22 U/L (14-36); BLOOD UREA NITROGEN 9 mg/dl (7-17); CALCIUM 8.7 mg/dL (8.4-10.2); GFR NON-AFRICAN AMERICAN > 60; URIC ACID 1.8 mg/Dl (2.2-7.5)
[2018-04-29] MEDS ORDERED: Betamethasone Soluspan 30 mg/5mL Inj Susp IM ONE (15:00)
[2018-04-29 15:15] LABS: SPECIMEN COMMENT SL.CLOUDY
[2018-04-29] MEDS ORDERED: Magnesium Sulfate 4 gm/100 ml 4 GM/100 ML BAG IV ONE (15:49)
[2018-04-29] MEDS ORDERED: Magnesium Sul 40GM/1L SW 40 GM/1,000 ML ML IV ONE (15:49)
[2018-04-29] MEDS: Lactated Ringer's 1,000 ML IV SCH (17:00)
[2018-04-29 23:49] VITALS: O2SAT 99
[2018-04-30] MEDS: Lactated Ringer's 1,000 ML IV SCH (07:00)
--- NOTE | 2018-04-30 08:02 | OBHP ---
Datetime: 04/29/2018 14:04 IP Adm Impression: , intrauterine ; No Active Labor; Intact Membranes IP Admit Plan: Admit to unit; Observation/Evaluation Admit Comment, IP Provider: HPI: Franky is a 22 year old at 33.0 weeks an BARRY of 06/17/2018 w ho presented to triage for evaluation of bilateral lower abdominal pain. Denies contractions, LOF or vaginal bleeding. Endorsing good movement. While in triage her BP was noted to be >140/90 on several occasions. Denies any visual disturbance s, RUQ pain, new onset edema or epigastric pain. She is having some mild nausea. Problems Denies any history of high blood pressure in this or in the past. No other com plications reported. PMH Denies PSH Denies Medications PNV Allergies Penicillins (rash) Social Denies tobacco, alcohol or drug use OBJECTIVE See exam section Labs: Hgb 9.6 Plts 248 Cr 0.4 AST 22 ALT 27 Urine protein neg Fibronectin neg Assessment/Plan: 22 year old at 33.0 weeks presenting to triage for bilateral pelvic pain wit h a negative work-up for labor. However, her BP was consistently >140/90 over a period of savana ost 4 hours of observation in triage. Currently she is not meeting criteria for preeclampsia but like ly is meeting criteria for gestational hypertension. She will be admitted for a period of observation as well as steroids. - Continuous monitoring - Betamethasone 12mg x2 - We will start 24 hr urine collection - Consider starting Mg if she has severe features - Based on her records review her BARRY is 07/14/18, though patient states she was told 05/25 11/08, we will call and obtain more accurate dating records tomorrow -Speculum exam- no vaginal bleeding, no ROM, no cervical dilation Case reviewed and discussed with attending Ob Fellow- Jesusita Smith- PGY-1 LATE ENTRY OB hospitalist on-call Initially, i saw and examined this patient at 12:30pm. Labs ordered and BP monitored. A: 33w elev ated BP - MFM consulted - start Labetolol 200mg BID/MgSO4/24h urine collectoin and steroids. With jayson ambriz, FOB, mother present I expained conditoin, management plan, medicatoins with its risks and comp lications. The FOB was upset that we were admitting her. After some time, she agreed to stay and be admitted. Lungs - PN: Normal Heart - PN: Normal HEENT - PN: Normal General - PN: Normal IP Fetus A Comments: Reactive NST FHR - Baseline A Provider: 140 Membranes, Provider: Intact Comments, ACOG Physical Exam: Speculum exam: Cervix closed, no ROM, no bleeding in vaginal vault. Gestation - Est Wks by US: 33.0 Pool Provider: Negative EGA AdmitDate IP: 33.0 Vital Signs Provider: Reviewed; Within Normal Limits IP Chief Complaint: Maternal discomfort NICHD Variability Prov Fetus A: Moderate 6-25bpm NICHD Decel Fetus A IP Provider: None Dilatation, Provider: 0
[2018-04-30] MEDS ORDERED: Betamethasone Soluspan 30 mg/5mL Inj Susp IM ONE (15:00)
[2018-05-01 08:00] VITALS: TEMP 98.5
--- NOTE | 2018-05-01 11:34 | OBPN ---
Datetime: 05/01/2018 09:05 IP Procedures: Sterile Vag Exam IP Progress Plan: Continue present management Contraction Comments Provider: none FHR - Baseline A Provider: 120s-130s IP Progress Note Comment: Pt reports seeing 'spot of blood' while wiping in bathroom. No VB at this time. No LoF, ctxs. Pt reports good FM. Otherwise, pt without complaints. Pt with blunted affect and made complaints of home life over night to nursing staff. Cx L/C/P No blood, fluid, discharge FHT category I Plan to check BPP with [facility] Social Work consult Continue observation Vital Signs Provider: Reviewed; Within Normal Limits NICHD Accel Fetus A IP Provider: [id number] FHR Category Provider Fetus A: Category I NICHD Variability Prov Fetus A: Moderate 6-25bpm Dilatation, Provider: 0 Effacement, Provider: 0 Station, Provider: -4 NICHD Decel Fetus A IP Provider: None Datetime: 04/30/2018 19:26 IP Progress Impression: Gest. HTN/PreEclampsia/Eclampsia Datetime: 04/29/2018 14:04 Pool Provider: Negative Membranes, Provider: Intact IP Fetus A Comments: Reactive NST Gestation - Est Wks by US: 33.0
--- NOTE | 2018-05-01 14:22 | US ---
Date of service: 05/01/2018 PROCEDURE: Limited obstetrical ultrasound examination HISTORY: Measure cervical length COMPARISON: Not available TECHNIQUE: Limited examination was performed at the request of the referring physician. Biophysical profile and evaluation of cervical length was requested. FINDINGS: A single live intrauterine gestation identified in cephalic presentation. The heart rate is 133 beats per minute. A normal quantity of amniotic fluid is visualized. An anterior placenta is identified. There is no evidence of placenta previa. The cervix measures 4.5 cm in length. It is closed. Biophysical profile examination yields a score of 8 out IMPRESSION: Of 8. Limited examination. Cervix closed and measures 4.5 cm in length. Biophysical profile score 8 out of 8.
[2018-05-01 14:49] LABS: BARBITURATES, UR NEGATIVE (NEGATIVE); BENZODIAZEPINES, UR NEGATIVE (NEGATIVE); OPIATES, UR NEGATIVE (NEGATIVE); PHENCYCLIDINE, UR NEGATIVE (NEGATIVE)
--- NOTE | 2018-05-05 15:21 | OBPN ---
Datetime: 05/01/2018 16:24 IP Progress Note Comment: Patient's BPP score 8 out of 8. Patient normotensive. Patient without comp laints at this time. heart tracing category 1. Discharge I discussed plan with patient and all patient questions answered. Patient will follow up in clinic within the week. Patient given labor precautions. Patient also given hypertensive precautions.
[2018-05-05 19:20] VITALS: BP 131/89; PULSE 68; RESP 16
== END 2018-05-01 15:24 | disposition home or self-care (01) ==
LOC: H.EROB2 11:35 → H.EROB 12:22 → INTOOBSV 15:47 → H.L&D 15:47 → H.EROB2 15:47 → H.L&D 04-30 10:18
PROVIDERS: ADMIT Obstetrics & Gynecology; ATTEND Obstetrics & Gynecology
PROC: 4A1HXCZ Monitoring of Products of Conception, Cardiac Rate, External Approach (ICD-10-PCS; principal; 2018-04-29)
DX: O13.3 Gestational [pregnancy-induced] hypertension without significant proteinuria, third trimester (principal); Z3A.33 33 weeks gestation of pregnancy
CPT/HCPCS: 76818; 80053; 80324; 80345; 80346; 80349; 80353; 80358; 80361; 81003; 82731; 83735; 83992; 84156; 84550; 85027; 85384; 96365; 96372; 96376; 99284; G0378; J0702; J3475; J7120

== ENCOUNTER 2018-05-23 20:38 | Inpatient (IN) | payer OTHER ==
[2018-05-23 21:28] VITALS: BMI 30.2
[2018-05-23] MEDS ORDERED: Lactated Ringer's 1,000 ML IV SCH (21:30)
[2018-05-23] MEDS ORDERED: Labetalol 5 mg/ml Inj 20ML IVP STA (21:43)
[2018-05-23] MEDS ORDERED: Magnesium Sul 40GM/1L SW 40 GM/1,000 ML ML IV ONE ×2 (21:49→22:04)
[2018-05-23] MEDS ORDERED: Labetalol 5mg/ml (4ml) ONE (21:53)
[2018-05-23] MEDS ORDERED: Magnesium Sulfate 4 gm/100 ml 4 GM/100 ML BAG IVPB ONE ×2 (22:00→22:15)
[2018-05-23] MEDS ORDERED: Labetalol 5mg/ml (4ml) IVP STA (22:00)
[2018-05-23 23:28] LABS: ALB/GLOB RATIO 0.9 (1.0-2.1); ALBUMIN 3.3 g/dL (3.5-5.0); ALT/SGPT 20 U/L (9-52); AST/SGOT 24 U/L (14-36); BLOOD UREA NITROGEN 11 mg/dl (7-17); CALCIUM 8.8 mg/dL (8.4-10.2); GFR NON-AFRICAN AMERICAN > 60
== END 2018-05-23 23:52 | disposition home or self-care (01) | DRG 372 ==
LOC: H.EROB2 20:38 → H.L&D 21:28
PROVIDERS: ADMIT Obstetrics & Gynecology Gynecology; ATTEND Obstetrics & Gynecology Gynecology
PROC: 4A1HXCZ Monitoring of Products of Conception, Cardiac Rate, External Approach (ICD-10-PCS; principal; 2018-05-23)
DX: O14.14 Severe pre-eclampsia complicating childbirth (principal); O36.5930 Maternal care for other known or suspected poor fetal growth, third trimester, not applicable or unspecified; Z3A.35 35 weeks gestation of pregnancy

== ENCOUNTER 2018-05-26 14:58 | Inpatient (IN) | payer OTHER ==
[2018-05-26] MEDS: Lactated Ringer's 1,000 ML IV SCH ×2 (16:25→23:39)
--- NOTE | 2018-05-26 16:38 | OBHP ---
Datetime: 05/26/2018 16:11 IP Adm Impression: , intrauterine IP Chief Complaint Other: IUGR IP Admit Plan: Admit to unit; Initiate labor induction protocol Admit Comment, IP Provider: Patient is a @ 36.2 with history of IUGR (05/23 growth showed 2% overall EFW with no interval growth), pre-eclampsia and anemia. Patient was recommended for delivery 05/23 and signed out AMA. Patient today presented ready for induction. denies VB, leaking, +FM, no c txns, no PINK, no blurry vision, no N/V. Patient's initial BPs here was 130s/90s. Patient had been admi tted previously at 32 wks for suspected pre-clampsia, Betamethasone was given, Mg and Labetalol. Giselle ent was not continued on Labetalol PO after discharge. On 05/23 pt was started on MgSo4 for suspected pre-eclampsia with severe features. Will observe patient and see if any new symptoms present or if B P starts to increased. Will also give pt a second course of Betamethasone while being induced over 24 hours. Patient reports anaphylaxis to PCN - difficulty breathing and throat swelling. Discussed with pt for GBS prophylaxis once in labor, will have to be given Vancomycin VE=L/T/C QXU=[id number] mod nasir, +accels no decels TOCO = cxtning q irregularly A/P 1. Patient to be admitted for induction - start IVF, CBC, type and screen 2. Cerviadil to be placed 3. Admitting BP = 130/90. Patient is a pre-eclamptic, will observe to see if develops severe featu res today - if necessary will start MgSO4 and give medication for BP Pelvic Type - PN: Adequate Extremities - PN: Normal Abdomen - PN: Normal Back - PN: Normal Breast - PN: Normal Lungs - PN: Normal Heart - PN: Normal Thyroid - PN: Normal Neurologic - PN: Normal HEENT - PN: Normal General - PN: Normal FHR - Baseline A Provider: 135 Contraction Comments Provider: irregular Vital Signs Provider: Reviewed; Within Normal Limits NICHD Variability Prov Fetus A: Moderate 6-25bpm NICHD Accel Fetus A IP Provider: [id number] NICHD Decel Fetus A IP Provider: None Dilatation, Provider: closed Effacement, Provider: thick Station, Provider: high Genitourinary Exam: Normal DTRs - PN: Normal Datetime: 05/23/2018 21:49 Comments, ACOG Physical Exam: General: patient alert and oriented, visibly upset and tearful HEENT: EOMI, PERRL, mucous membranes moist Resp: nonlabored respirations CV: Regular rate Neuro: alert, no focal neurologic deficits Gestation - Est Wks by US: 35.6 IP Indication for Induction: IUGR; Gest. HTN/PreEclampsia/Eclampsia FHR Category Provider Fetus A: Category I Datetime: 04/29/2018 14:04 EGA AdmitDate IP: 32.3
[2018-05-26 16:44] LABS: BASO # 0.1 K/uL (0.0-0.2); BASO % 0.6 % (0.0-2.0); EOS % 0.4 % (0.0-4.0); HEMOGLOBIN 10.9 g/dL (12.0-16.0); LYMPH % 24.9 % (20.0-40.0); MEAN CELL VOLUME 83.5 fl (81.0-99.0); MEAN CORPUSCULAR HEMOGLOBIN 27.7 pg (27.0-31.0); MEAN CORPUSCULAR HGB CONC 33.2 g/dL (33.0-37.0); MONO # 0.6 K/uL (0.0-0.8); MONO % 7.5 % (0.0-10.0); NEUT # 5.3 K/uL (1.8-7.0); NEUT % 66.6 % (50.0-75.0); NRBC % 0.1 % (0.0-0.0); RBC 3.94 Mil/uL (3.80-5.20); RED CELL DISTRIBUTION WIDTH 14.9 % (11.5-14.5)
[2018-05-26 17:49] LABS: ALB/GLOB RATIO 0.9 (1.0-2.1); ALBUMIN 3.1 g/dL (3.5-5.0); ALT/SGPT 22 U/L (9-52); AST/SGOT 25 U/L (14-36); BLOOD UREA NITROGEN 16 mg/dl (7-17); CALCIUM 8.5 mg/dL (8.4-10.2); GFR NON-AFRICAN AMERICAN > 60
--- NOTE | 2018-05-26 19:28 | OBPN ---
Datetime: 05/26/2018 19:21 IP Informed Consent Obtain: Vaginal Delivery IP Progress Plan: Continue present management Contraction Comments Provider: q 8 mins FHR - Baseline A Provider: 120 IP Progress Note Comment: Patient evaluated, comfortable. VE=L/T/C FHR = 120 mod nasir, +accels, no decels TOCO = q 8-10 mins A/P 1. Cervidil placed for induction 2. Last BP = 150/100, otherwise pt stable and no new signs/symptoms of pre-eclampsia. Will continu e to watch closely. ALl labs nml 3. CEFM and TOCO Vital Signs Provider: Reviewed; Within Normal Limits NICHD Accel Fetus A IP Provider: [id number] NICHD Variability Prov Fetus A: Moderate 6-25bpm Dilatation, Provider: long Effacement, Provider: thick Station, Provider: closed Datetime: 05/26/2018 16:11 NICHD Decel Fetus A IP Provider: None Datetime: 05/23/2018 21:49 Gestation - Est Wks by US: 35.6 FHR Category Provider Fetus A: Category I
[2018-05-26 21:53] LABS: BARBITURATES, UR NEGATIVE (NEGATIVE); BENZODIAZEPINES, UR NEGATIVE (NEGATIVE); OPIATES, UR NEGATIVE (NEGATIVE); PHENCYCLIDINE, UR NEGATIVE (NEGATIVE)
[2018-05-26] MEDS ORDERED: Magnesium Sul 40GM/1L SW 40 GM/1,000 ML ML IV ONE (21:55)
[2018-05-26] MEDS ORDERED: Magnesium Sulfate 4 gm/100 ml 4 GM/100 ML BAG IV ONE (21:55)
[2018-05-26] MEDS ORDERED: Betamethasone Soluspan 30 mg/5mL Inj Susp IM SCH (22:00)
[2018-05-27 06:22] LABS: BASO % 0.1 % (0.0-2.0); HEMOGLOBIN 11.7 g/dL (12.0-16.0); LYMPH # 1.3 K/uL (1.0-4.3); LYMPH % 11.6 % (20.0-40.0); MEAN CELL VOLUME 83.8 fl (81.0-99.0); MEAN CORPUSCULAR HEMOGLOBIN 27.6 pg (27.0-31.0); MEAN PLATELET VOLUME 8.3 fl (7.2-11.7); MONO # 0.2 K/uL (0.0-0.8); MONO % 1.4 % (0.0-10.0); NEUT # 9.4 K/uL (1.8-7.0); NEUT % 86.9 % (50.0-75.0); RBC 4.21 Mil/uL (3.80-5.20); RED CELL DISTRIBUTION WIDTH 14.7 % (11.5-14.5); WHITE BLOOD COUNT 10.9 K/uL (4.8-10.8)
[2018-05-27 06:47] LABS: ALB/GLOB RATIO 0.9 (1.0-2.1); ALBUMIN 3.4 g/dL (3.5-5.0); ALT/SGPT 27 U/L (9-52); AST/SGOT 23 U/L (14-36); BLOOD UREA NITROGEN 11 mg/dl (7-17); GFR NON-AFRICAN AMERICAN > 60
[2018-05-27] MEDS: Lactated Ringer's 1,000 ML IV SCH ×3 (08:00→16:15)
--- NOTE | 2018-05-27 08:09 | OBPN ---
Datetime: 05/26/2018 11:30 IP Progress Note Comment: Patient re-evaluated and discussion of care - BP ranges 110s - 140s/80s-10 0s. Patient continues to be asymptomatic. Discussed with patient that after reviewing all documentati on and history of previous visits, patient fits criteria for severe pre-eclampsia and will start MgSO 4 for seizure prophylaxis. Will hold off on labetalol for treatment of abnormal BPs until BP consista ntly 150-160/100s. After this conversation, FOB presented to L_D and patient's BPs were the highest s carey admission. 160-170/100. Patient continued to be asymptomatic. Patient appeared slightly aggitate d, FOB was asked to leave the room to proceed with medical care of the patient and FOB refused. After FOB left the facility, BPs returned to normal range Vital Signs Provider: Reviewed; Within Normal Limits
[2018-05-27] MEDS ORDERED: Nalbuphine 20 mg/ml Inj (1 ml) IVP PRN (09:06)
[2018-05-27] MEDS ORDERED: Betamethasone Soluspan 30 mg/5mL Inj Susp IM SCH (11:00)
--- NOTE | 2018-05-27 16:10 | OBPN ---
Datetime: 05/27/2018 16:01 IP Progress Impression: Reassuring heart rate IP Progress Plan: Induction; Cervical Ripening; Anticipate Vaginal Delivery FHR - Baseline A Provider: 120 Presentation-Admit: Vertex NICHD Accel Fetus A IP Provider: [id number] FHR Category Provider Fetus A: Category I NICHD Variability Prov Fetus A: Minimal - Undetectable to <5bpm NICHD Decel Fetus A IP Provider: None Datetime: 05/27/2018 09:12 IP Informed Consent Obtain: Vaginal Delivery; Induction of Labor IP Procedures: Sterile Vag Exam Membranes, Provider: Intact Contraction Comments Provider: Q3-5 min Gestation - Est Wks by US: 36.3 IP Progress Note Comment: S: Patient feeling painful contractions every few minutes, would like some pain medication O: see exam section BP range for last 12 hrs 112-164/67-106 A/P: 22 year old at 36.3 admitted 05/26 for IOL secondary to preeclampsia after leaving the spital 05/23 against medical advice. Patient has been on Mg since approximately midnight and received 1 dose of betamethasone on admission - S/p cervidil overnight, now removed, endy fairly regularly at the moment - Nubain available for pain relief - When contractions space out we will start cytotec since her cervix is still unfavorable (Rogers score <8) - Hx of GBS bacteriuria, plan to start Vancomycin for more active labor or ROM (Vanc due to penici llin allergy with SOB, no culture/sensitivity results available - adoption services manager consult placed Niyah Atkins MD OB Fellow OB [facility]-call sign out rec'd frm Dr Nadia Elizalde - Pt seen on rounds this AM. Conituning IOL. Pt's question answered. MAHNDO Vital Signs Provider: Reviewed Vital Signs Provider Details: Elevated BPs Dilatation, Provider: 0 Effacement, Provider: 20 Station, Provider: -3
--- NOTE | 2018-05-27 16:11 | OBPN ---
Datetime: 05/27/2018 16:01 IP Progress Note Comment: OB Hospitalist on-call. Notified earlier today she had decreased LTV with Nubain IV. She is also receiving MgSO4 IV. Her BPs have been better with no guests. SHe was check ed earlier and had + accel with scalp stim (Lisa Mars). She was given Cytotec #2 at 15:10pm. JOSELIN MORIN Variability Prov Fetus A: Moderate 6-25bpm
--- NOTE | 2018-05-27 18:38 | OBPN ---
Datetime: 05/27/2018 18:34 IP Progress Impression: Reassuring heart rate IP Progress Plan: Continue present management; Induction; Anticipate Vaginal Delivery FHR - Baseline A Provider: 115 IP Fetus A Comments: Accel with scalp stim to 130 IP Progress Note Comment: Notified of decreased LTV since 5:30pm when LTV was better. SBE 1cm - scalp stim - accel to 103's noted. will continue monitoring FHR/continued IOL NICHD Accel Fetus A IP Provider: [id number] NICHD Variability Prov Fetus A: Minimal - Undetectable to <5bpm Dilatation, Provider: 1 Effacement, Provider: long Station, Provider: high NICHD Decel Fetus A IP Provider: None
[2018-05-27] MEDS ORDERED: Magnesium Sul 40GM/1L SW 40 GM/1,000 ML ML IV ONE (19:29)
[2018-05-28] MEDS: Vitamin A/D oint 60G TP PRN (00:26)
[2018-05-28] MEDS: Lactated Ringer's 1,000 ML IV SCH ×2 (03:39→16:30)
[2018-05-28] MEDS ORDERED: Magnesium Sul 40GM/1L SW 40 GM/1,000 ML ML IV ONE (16:07)
[2018-05-28] MEDS ORDERED: Nalbuphine HCL 10 mg/ml Ampule IVP PRN (18:24)
[2018-05-28] MEDS ORDERED: Nalbuphine HCL 10 mg/ml Ampule ONE (18:38)
[2018-05-28] MEDS ORDERED: Fentanyl/Bupivacaine HCl 250 ML EPI ONE (20:57)
[2018-05-29] MEDS: Lactated Ringer's 1,000 ML IV SCH ×2 (03:54→07:30)
[2018-05-29] MEDS: Vitamin A/D oint 60G TP PRN (08:00)
[2018-05-29] MEDS ORDERED: Magnesium Sul 40GM/1L SW 40 GM/1,000 ML ML IV ONE (08:36)
[2018-05-29] MEDS: Oxytocin 30 UNIT 30 UNITS/500 ML BAG IV ONE ×2 (10:39→16:24)
--- NOTE | 2018-05-29 11:20 | OBPN ---
Datetime: 05/29/2018 11:13 IP Procedures: Sterile Vag Exam IP Progress Plan: Continue present management Contraction Comments Provider: none FHR - Baseline A Provider: 120s IP Progress Note Comment: Pt without complaints. FHT category I Plan to start pitocin augmentation Start IV abx for GBS proph Discussed plan with patient and all patient questions answered Vital Signs Provider: Reviewed; Within Normal Limits NICHD Accel Fetus A IP Provider: 15X15 FHR Category Provider Fetus A: Category I NICHD Variability Prov Fetus A: Moderate 6-25bpm Dilatation, Provider: 1-2 Effacement, Provider: 50 Station, Provider: -2 NICHD Decel Fetus A IP Provider: None Datetime: 05/28/2018 18:42 IP Informed Consent Obtain: Vaginal Delivery; Induction of Labor Membranes, Provider: Intact Gestation - Est Wks by US: 36.4 Presentation-Admit: Vertex
[2018-05-29] MEDS ORDERED: Nalbuphine HCL 10 mg/ml Ampule IVP PRN (15:07)
[2018-05-29] MEDS ORDERED: Oxytocin 30 UNIT 30 UNITS/500 ML BAG IV ONE (15:12)
[2018-05-29] MEDS ORDERED: OXYTOCIN/0.9 % NS 20 UNIT/1,000 ML BAG IV SCH (15:15)
[2018-05-29] MEDS ORDERED: Nalbuphine HCL 10 mg/ml Ampule ONE (15:19)
[2018-05-29] MEDS ORDERED: Fentanyl/Bupivacaine HCl 250 ML EPI ONE (16:14)
[2018-05-29] MEDS ORDERED: Benzocaine/Menthol SPRAY TOP PRN (17:35)
[2018-05-29] MEDS ORDERED: Oxycodone/Acetaminophen 5/325 mg Tab PO PRN ×2 (17:35→17:45)
[2018-05-29] MEDS ORDERED: Labetalol 5 mg/ml Inj 20ML IVP STA (21:15)
[2018-05-30] MEDS ORDERED: Acetaminophen 650mg/20.3ml solution UD PO PRN ×2 (04:23→17:00)
[2018-05-30] MEDS: Lactated Ringer's 1,000 ML IV SCH ×2 (07:43→16:49)
--- NOTE | 2018-05-30 08:59 | OBDS ---
DELIVERY PERSONNEL Nurse Yeast Pumper Certified: deacon Delivery Doctor: Ella Hollis MD Scrub Nurse: deacon Winding Machine Operator: Laly Higgins RN Anesthesiologist: deacon Web Site Administrator: deacon Resident: MATERNAL INFORMATION Delivery Anesthesia: Local Medications in Delivery: Pitocin 30 units in 500 cc LR Estimated Blood Loss (ml): 200 cc Placenta Cultured: No Maternal Complications: Other Other Maternal Complications: IUGR RN Comments: tolerated well by pt.Delivery attended by and (resident). Provider Comments: This is Franky Ferguson on 05/29/2018 at 16:21 Pt have delivered a small baby boy who weight 1585 with of 9/9, during delivery there were no complication except for a first-degr ee laceration which was repaired with 2 suture. 200 ml EBL. During labor patient pain was controlled with Nuebain and Nitrostat, she had received 2 carvedil and Pitocin for augmentation. Surgery was mad e by Doctor Hollis with certified physical therapist assistant of Dr. Murillo. Due to baby weight Pediatric was consulted, and baby was evaluated. Christian Murillo PGY1 LABOR SUMMARY EDC: 06/21/2018 00:00 No. Babies in Womb: 1 Attempted: No Labor Anesthesia: None LABOR INFORMATION Reason for Induction: Intrauterine Growth Retardation Onset of Labor: 05/29/2018 14:30 Complete Dilatation: 05/29/2018 16:15 Cervical Ripening Agents: Cervidil; Cytotec @ Oxytocin: Augmentation Group B Beta Strep: Positive Antibiotics # of Doses: 1 Antibiotics Time of Last Dose: 1200 05/29/18 Steroids Given: Full Course Reason Steroids Not Administered: Not Applicable Other Reason Not Administered: na MEMBRANES Membranes Rupture Method: Artificial Rupture of Membranes: 05/29/2018 16:20 Length of Rupture (hrs): 0.02 Amniotic Fluid Color: Clear Amniotic Fluid Amount: Small Amniotic Fluid Odor: Normal STAGES OF LABOR Stage 1 hrs: 1 Stage 1 min: 45 Stage 2 hrs: 0 Stage 2 min: 6 Stage 3 hrs: 0 Stage 3 min: 3 Total Time in Labor hrs: 1 Total Time in Labor min: 54 VAGINAL DELIVERY Episiotomy: None Laceration Extension: First Degree Laceration Type: Vaginal Laceration Repair: Yes Laceration Repair Note: Second-degree lateral vaginal laceration. Area infiltrated with 1% lidocaine . Laceration repaired with 2. 0 repeat without complication. Initial Vag Sponge Count: 5 Final Vag Sponge Count: 5 Initial Vag Sharps Count: 2 Final Vag Sharps Count: 2 Sponge Count Correct: Yes; Vaginal Sweep Performed Sharps Count Correct: Yes Count Comment: 4x4=20 pcs counted with BABY A INFORMATION Infant Delivery Date/Time: 05/29/2018 16:21 Method of Delivery: Vaginal Born in Route : No : N/A Forceps: Outlet Vacuum Extraction: N/A Shoulder Dystocia : No SHOULDER DYSTOCIA BABY A Infant Delivery Date/Time: 05/29/2018 16:21 PRESENTATION/POSITION BABY A Presentation: Cephalic Breech Presentation: N/A PLACENTA INFORMATION BABY A Placenta Delivery Time : 05/29/2018 16:24 Placenta Method of Delivery: Spontaneous Placenta Status: Delivered SCORES BABY A Heart Rate 1 min: >100 bpm Resp Effort 1 min: Good Cry Reflex Irritability 1 min: Cough or Sneeze or Pulls Away Muscle Tone 1 min: Active Motion Color 1 min: Body [place], Extremities Blue Resuscitation Effort 1 min: Tactile Stimulation SCORE 1 MIN: 9 Heart Rate 5 min: >100 bpm Resp Effort 5 min: Good Cry Reflex Irritability 5 min: Cough or Sneeze or Pulls Away Muscle Tone 5 min: Active Motion Color 5 min: Completely [place] Resuscitation Effort 5 min: Tactile Stimulation SCORE 5 MIN: 10 INFANT INFORMATION BABY A Gestational Age at Delivery: 36.5 Gestational Status: Infant Outcome : Liveborn Condition : Stable IDENTIFICATION/MEDS BABY A ID Band Number: [id number] ID Band Location: Left Leg; Left Arm Vitamin K Given : Not Given Erythromycin Given: Not Given WEIGHT/LENGTH BABY A Infant Birthweight (gms): 1585 Weight (lb): 3 Weight (oz): 8 CORD INFORMATION BABY A No. Cord Vessels: 3 Nuchal Cord : N/A Nuchal Cord Other: na True Knot: na Cord pH Baby Arterial: na Infant Cord pH Baby Venous: na Cord Blood Taken: Yes Banking/Donate Info: na Suction: Mouth ASSESSMENT BABY A Complications: None Infant Complications Other: IUGR Physical Findings at Delivery: Within Normal Limits Respirations: Appears Normal Study Lead/ALS Called : No Infant Care By: (peds)/Ailyn Espinoza Transferred To: [facility]
[2018-05-30] MEDS ORDERED: Magnesium Sul 40GM/1L SW 40 GM/1,000 ML ML IV ONE (11:50)
--- NOTE | 2018-05-30 11:59 | OBPPN ---
Datetime: 05/30/2018 06:05 PP Nausea Prov: Denies PP Flatus Prov: Yes PP BM Prov: Yes PP Comments Phys Exam Prov: See progress note PP Impression Prov: Induced Hypertension PP Plan Prov: Continue present management PP Progress Note Prov: The patient is 22 y/o A3 PPD1 s/p NVD seen and examined at bedside this A M. Pt c/o mild pain on the left side of rib cage 2/10 in intensity, states pain increases when she tr ies to lie on the left side or take deep breaths. Patient denies chest pain, abdominal pain, palpita tions, SOB, cough, PINK, blurry vision, fevers, chills, dysuria or calf pain at this time. Patient repo rts she had a BM already today, voiding well and is getting OOB ambulating w/o dizziness. Patient has baby in nursery and has not started yet. O: VS 6:00AM BP 129/76 HR 76 HEENT: NCAT RESP: CTA b/l, no wheezing, no rhonchi CV: RRR, S1 S2 present normal, no murmurs. EXT: Pulses present 3+ and equal b/I UE, LE negative for Tatum's sign A/P The patient is 22 y/o A3 PPD1 s/p NVD with c/o mild musculoskeletal left sided rib cage pain l ikely secondary to labor effort, also patient has induced uncotrolled HTN. -Regular diet -Encourage ambulation -C/w VS monitoring, specially monitor BP -Encourage -PNV 1 tab PO daily -Acetaminophen 650 mg po Q6h PRN pain Ronald Devlin MD PGY1 Addendum by Dr. Elizalde: I have evaluated the patient independently and I agree with the above Vital Signs Provider PP: Reviewed Vital Signs Provider Details PP: BP uncontrolled Datetime: 05/29/2018 19:11 PP Pain Prov: Within normal limits
[2018-05-30] MEDS ORDERED: Oxycodone/Acetaminophen 5/325 mg Tab PO PRN (17:00)
[2018-05-30] MEDS ORDERED: Benzocaine/Menthol SPRAY TOP PRN (17:00)
[2018-05-30] MEDS ORDERED: Vitamin A/D oint 60G TP PRN (17:00)
[2018-05-31] MEDS ORDERED: Influenza Vaccine 60 mcg/0.5 mL SYR (4YR UP) IM ONE (07:47)
--- NOTE | 2018-05-31 10:03 | OBPPN ---
Datetime: 05/31/2018 06:03 PP Pain Prov: Within normal limits PP Nausea Prov: Denies PP Flatus Prov: Yes PP BM Prov: Yes PP Comments Phys Exam Prov: see progress note PP Impression Prov: Induced Hypertension PP Progress Note Prov: The patient is 22 y/o A3 PPD1 s/p NVD seen and examined at bedside this A M. Patient c/o crampy pelvic pain that gets relief w/ pain meds, patient states that her rib/back guerita n from previous day is improved. Patient denies chest pain, abdominal pain, palpitations, SOB, cough, PINK, blurry vision, fevers, chills, dysuria or calf pain at this time. Patient reports she had BM alr karly, voiding well and is getting OOB ambulating w/o dizziness. Patient has baby in nursery and is pu mping her breast. O: VS 4AM BP 148/92 HR 81 HEENT: NCAT RESP: CTA b/l, no wheezing, no rhonchi CV: RRR, S1 S2 present normal, no murmurs. ADB: Soft, uterus firm at umbilical level EXT: pedal edema+, negative for Tatum's sign A/P The patient is 22 y/o A3 s/p NVD, with induced HTN during her hospital course, today in her PPD2 -Regular diet -Encourage ambulation -C/w VS monitoring, specially monitor BP -Encourage -PNV 1 tab PO daily -Acetaminophen 650 mg po Q6h PRN pain -Start D/C planning. Ronald Devlin MD PGY1 OB Hospitalist on-call...Obtain medical consult prior to discharge...contacted Dr Reeves and Dr Sierra OLIVERA Vital Signs Provider PP: Reviewed
--- NOTE | 2018-05-31 10:32 | CP.PCM.CON ---
History of Present Illness - History of Present Illness History of Present Illness: 22 yo female diagnosed with pre-eclampsia and anemia referred because of persistent elevation of BP since delivery 2 days ago. Presently BP was noted at 170/100 on both arms. Patient remained asymptomatic aside from feeling sore Review of Systems - Review of Systems All systems: reviewed and no additional remarkable complaints except (aside from those mentioned above, 12 point system review were negative by me) Past Patient History - Past Medical History & Family History Past Medical History?: Yes - Past Social History Smoking Status: Never Smoked - CARDIAC Hx Hypertension: No - PULMONARY Hx Asthma: Yes - NEUROLOGICAL Hx Seizures: No - HEMATOLOGICAL/ONCOLOGICAL Hx Human Immunodeficiency Virus (HIV): No - MUSCULOSKELETAL/RHEUMATOLOGICAL Hx Falls: No - GASTROINTESTINAL Hx Gall Bladder Disease: Yes - GENITOURINARY/GYNECOLOGICAL Hx Sexually Transmitted Disorders: No - PSYCHIATRIC Hx Substance Use: No Other/Comment: use to smoke marijuana not anymore - SURGICAL HISTORY Hx Cholecystectomy: Yes - ANESTHESIA Hx Anesthesia: Yes Hx Anesthesia Reactions: No Meds Allergies/Adverse Reactions: Allergies Allergy/AdvReac Type Severity Reaction Status Date / Time amoxicillin Allergy Severe ANAPHYLAXIS Verified 05/26/18 22:01 Penicillins Allergy Severe ANAPHYLAXIS Verified 05/26/18 22:01 - Medications Medications: Current Medications Acetaminophen (Tylenol 650mg/20.3ml Solution Ud) 650 mg PO Q6 PRN PRN Reason: Pain, moderate (4-7) Last Admin: 05/31/18 06:36 Dose: 650 mg Benzocaine/Menthol (Dermoplast) 1 sprays TOP Q6 PRN PRN Reason: Perineal Discomfort Last Admin: 05/30/18 18:01 Dose: 1 sprays Docusate Sodium (Colace Liquid) 100 mg PO BID ROYA Last Admin: 05/31/18 09:29 Dose: 100 mg Influenza Virus Vaccine (Flucelvax Quad [id number] Syr) 60 mcg IM .ONCE ONE Stop: 06/01/18 08:01 Oxycodone/Acetaminophen (Percocet 5/325 Mg Tab) 1 tab PO Q4 PRN PRN Reason: Pain, moderate (4-10) Stop: 06/01/18 17:36 Vitamin A (Vitamin A&D) 1 applic TP Q8 PRN PRN Reason: Dry skin Last Admin: 05/31/18 09:30 Dose: 1 applic Physical Exam - Constitutional Appears: No Acute Distress - Head Exam Head Exam: ATRAUMATIC - Eye Exam Eye Exam: absent: Scleral icterus - ENT Exam ENT Exam: Mucous Membranes Moist - Neck Exam Neck exam: Negative for: Meningismus - Respiratory Exam Respiratory Exam: absent: Rales, Rhonchi, Wheezes, Respiratory Distress - Cardiovascular Exam Cardiovascular Exam: REGULAR RHYTHM, +S1, +S2 - GI/Abdominal Exam GI & Abdominal Exam: Soft. absent: Tenderness - Rectal Exam Rectal Exam: Deferred - Extremities Exam Extremities exam: Negative for: pedal edema - Back Exam Back exam: NORMAL INSPECTION - Neurological Exam Neurological exam: Alert, Oriented x3 - Psychiatric Exam Psychiatric exam: Normal Affect - Skin Skin Exam: Dry, Intact Results - Vital Signs Recent Vital Signs: Last Vital Signs Temp 98.3 F 05/30/18 06:33 Pulse 69 05/27/18 19:49 Resp 16 05/27/18 19:49 BP 137/84 05/27/18 19:49 Pulse Ox 69 L 05/27/18 19:49 - Labs Result Diagrams: 05/27/18 05:15 05/27/18 05:15 Labs: Laboratory Results - last 24 hr 05/30/18 12:24 Magnesium 5.4 H* D Assessment & Plan (1) HTN (hypertension) Status: Acute Comment: continue monitoring BP. urinalysis. Metoprolol 50mg PO q 12hrs
[2018-05-31 11:36] LABS: SQUAMOUS EPITHIAL 2 /hpf (0-5); URINE BACTERIA RARE (<OCC); URINE BILIRUBIN NEGATIVE (NEGATIVE); URINE BLOOD LARGE (NEGATIVE); URINE CLARITY SLIGHTY-CLOUDY (Clear); URINE COLOR YELLOW (YELLOW); URINE GLUCOSE (UA) NEG (NEGATIVE); URINE LEUKOCYTE ESTERASE SMALL Leu/uL (Negative); URINE PROTEIN 100 mg/dL (NEGATIVE); URINE UROBILINOGEN 0.2-1.0 mg/dL (0.2-1.0)
[2018-06-01] MEDS ORDERED: Influenza Vaccine 60 mcg/0.5 mL SYR (4YR UP) IM ONE (08:00)
[2018-06-01] MEDS ORDERED: Prenatal Multivit/Folic Acid/Iron Tab PO SCH (09:00)
--- NOTE | 2018-06-01 10:43 | OBPPN ---
Datetime: 06/01/2018 08:11 PP Pain Prov: Within normal limits PP Nausea Prov: Denies PP Flatus Prov: Yes PP BM Prov: Yes PP Breasts Prov: Not Done PP Heart Prov: Normal PP Lungs Prov: Normal PP Abdomen/Uterus Prov: Normal PP Lochia Prov: Normal PP Vulva/Perineum Prov: Not Done PP CVA Tenderness Prov: Not Done PP Extremities Prov: Normal PP C/S Incision Prov: Not Applicable PP Progress Prov: Normal PP Impression Prov: Normal progression PP Plan Prov: Continue present management; Discharge PP Progress Note Prov: The patient is 22 y/o PPD3 s/p on 05/29/18 seen and examined at [facility] this AM. Patient c/o crampy pelvic pain and mild dysuria from the stiches that is relieved w/ pain meds. Patient denies chest pain, abdominal pain, palpitations, SOB, cough, PINK, blurry vision, fe vers, chills,or calf pain at this time. Medicine team was previously consulted, Pt is on Lopressor 50 mg. Patient reports she had a BM and is passing gas, voiding well and is getting OOB ambulating w/o d izziness. Patient is breast feeding. O: VS 4AM BP 142/84 HR 67 HEENT: NCAT RESP: CTA b/l, no wheezing, no rhonchi CV: RRR, S1 S2 present normal, no murmurs. ADB: Soft, uterus firm at umbilical level, + BS EXT: pedal edema+, negative for Tatum's sign A/P The patient is 22 y/o s/p NVD on 05/29/18, with preeclampsia during her hospital course, Do ing well PPD3 -Regular diet -Encouraged ambulation -Monitor BP- continue with Lopressor 50mg -Encourage -PNV 1 tab PO daily -Acetaminophen 650 mg po Q6h PRN pain -D/C home today -F/u with Luis Oneal 4-6 weeks Post and 1 week visit Halley Smith M.D. PGY-1 Case reviewed and discussed with attending Addendum by Dr. Elizalde: I have evaluated the patient independently and I agree with the above IP PP Procedures: None Vital Signs Provider PP: Reviewed Vital Signs Provider Details PP: BP 142/84
--- NOTE | 2018-06-01 10:58 | CP.PCM.PN ---
Subjective - Date & Time of Evaluation Date of Evaluation: 06/01/18 Time of Evaluation: 10:00 - Subjective Subjective: Patient seen and examined. Denied any complaint. Objective - Vital Signs/Intake and Output Vital Signs (last 24 hours): Temp Pulse Resp BP Pulse Ox 98.3 F 67 16 150/100 H 69 L 05/30/18 06:33 06/01/18 09:07 05/27/18 19:49 06/01/18 09:07 05/27/18 19:49 - Medications Medications: Current Medications Acetaminophen (Tylenol 650mg/20.3ml Solution Ud) 650 mg PO Q6 PRN PRN Reason: Pain, moderate (4-7) Last Admin: 05/31/18 06:36 Dose: 650 mg Benzocaine/Menthol (Dermoplast) 1 sprays TOP Q6 PRN PRN Reason: Perineal Discomfort Last Admin: 05/30/18 18:01 Dose: 1 sprays Docusate Sodium (Colace Liquid) 100 mg PO BID [facility] Last Admin: 06/01/18 09:18 Dose: Not Given Metoprolol Tartrate (Lopressor) 50 mg PO Q12 [facility] Last Admin: 06/01/18 09:07 Dose: 50 mg Oxycodone/Acetaminophen (Percocet 5/325 Mg Tab) 1 tab PO Q4 PRN PRN Reason: Pain, moderate (4-10) Stop: 06/01/18 17:36 Multivit/Folic Acid/Iron () 1 tab PO DAILY [facility] Last Admin: 06/01/18 09:11 Dose: 1 tab Vitamin A (Vitamin A&D) 1 applic TP Q8 PRN PRN Reason: Dry skin Last Admin: 05/31/18 09:30 Dose: 1 applic - Labs Labs: 05/27/18 05:15 05/27/18 05:15 - Constitutional Appears: No Acute Distress - ENT Exam ENT Exam: Mucous Membranes Moist - Neck Exam Neck Exam: absent: Meningismus - Respiratory Exam Respiratory Exam: absent: Rales, Rhonchi, Wheezes, Respiratory Distress - Cardiovascular Exam Cardiovascular Exam: REGULAR RHYTHM, +S1, +S2 Assessment and Plan (1) hypertension Status: Acute - Assessment and Plan (Free Text) Assessment: BP: 140/80 continue Metoprolol tartrate 50mg PO BID
[2018-06-01 22:34] VITALS: BP 140/80; PULSE 80; RESP 20; TEMP 98.6; O2SAT 98
== END 2018-06-01 18:20 | disposition home or self-care (01) | DRG 372 ==
LOC: H.EROB2 14:58 → H.L&D 16:03 → H.OB/GYN 05-30 16:56
PROVIDERS: ADMIT Obstetrics & Gynecology; ATTEND Obstetrics & Gynecology
PROC: 0HQ9XZZ Repair Perineum Skin, External Approach (ICD-10-PCS; principal; 2018-05-26)
PROC: 10E0XZZ Delivery of Products of Conception, External Approach (ICD-10-PCS; 2018-05-26)
PROC: 4A1HXCZ Monitoring of Products of Conception, Cardiac Rate, External Approach (ICD-10-PCS; 2018-05-26)
DX: O11.4 Pre-existing hypertension with pre-eclampsia, complicating childbirth (principal); O99.02 Anemia complicating childbirth; O70.0 First degree perineal laceration during delivery; Z3A.36 36 weeks gestation of pregnancy; Z37.0 Single live birth; O36.5930 Maternal care for other known or suspected poor fetal growth, third trimester, not applicable or unspecified; Z90.49 Acquired absence of other specified parts of digestive tract; O99.52 Diseases of the respiratory system complicating childbirth; J45.909 Unspecified asthma, uncomplicated